=== PATIENT | male | born 1970 | race Caucasian/White ===

== ENCOUNTER 2021-01-08 07:49 | Outpatient (CLI) | payer OTHER, SELFPAY ==
[2021-01-08] VITALS (8 sets, daily range): BP systolic 124–145; BP diastolic 79–96; PULSE 77–82; RESP 16; TEMP 36.7–36.8; O2SAT 94–97
== END 2021-01-08 10:20 | disposition home or self-care (01) ==
LOC: INF 07:57
PROVIDERS: PCP Family Medicine; Visit Provider Internal Medicine Pulmonary Disease
DX: U07.1 COVID-19 (principal)
CPT/HCPCS: 96365

== ENCOUNTER → 2021-02-10 07:53 | Outpatient (CLI) | payer OTHER, SELFPAY ==
--- NOTE | 2021-02-10 | CT_ITS ---
PROCEDURE: CT HEAD/BRAIN WO CON CLINICAL INDICATION: EXERTIONAL HEADACHE COMPARISON: No exams were available for comparison TECHNIQUE: Axial images obtained. All CT scans at the facility use one or more dose reduction, viz: automated exposure control, ma/kV adjustment per patient size (including targeted exams where dose is matched to indication, i.e. head), or iterative reconstruction technique. FINDINGS: No midline shift, mass effect, intracranial hemorrhage, hydrocephalus, or extra-axial fluid collection is evident. Incidental note is made of a mildly prominent cisterna magna as a normal variant. The calvarium has an unremarkable appearance. No mastoid effusion. Mild mucosal thickening of the ethmoid sinuses, maxillary and sphenoid sinus.. IMPRESSION: 1. No acute intracranial findings. 2. Minimal mucosal thickening of the paranasal sinuses Dictated by: Rex Sims MD 02/10/2021 17:10 Rex Sims MD in [facility] 02/10/2021 17:10
--- NOTE | 2021-02-10 | CT_ITS ---
Procedure: CT BRAIN WITH CONTRAST CLINICAL HISTORY: EXERTIONAL HEADACHE COMPARISON: CT CT HEAD/BRAIN WO CON from 02/10/2021 TECHNIQUE: IV Contrast: 100ml Isovue 370 Axial images obtained with sagittal and coronal reformats. All CT scans at the facility use one or more dose reduction, viz: automated exposure control, ma/kV adjustment per patient size (including targeted exams where dose is matched to indication, i.e. head), or iterative reconstruction technique. FINDINGS: This patient a CT a the and head. The head CT a however was not adequate for vascular evaluation due to the lack of contrast therefore, the study is being interpreted as the CT of the head with contrast. No large aneurysms. No AVM. No evidence of carotid occlusive change.. No enhancing lesions. No midline shift or mass effect. No hydrocephalus. There is mild mucosal thickening of the ethmoid sinuses. Mild mucosal thickening sphenoid sinus. Mild mucosal thickening maxillary sinuses. No sinus air-fluid level. No mastoid effusion. IMPRESSION: Negative CT head with contrast. Dictated by: Rex Sims MD 03/30/2021 08:30 Rex Sims MD in [facility] 03/30/2021 08:30
--- NOTE | 2021-02-10 | CT_ITS ---
Procedure: CT ANGIO NECK CT ANGIO HEAD CLINICAL HISTORY: EXERTIONAL HEADACHE COMPARISON: CT CT ANGIO HEAD from 02/10/2021 TECHNIQUE: IV Contrast: 100ml Isovue 370 Axial images obtained with sagittal and coronal reformats. All CT scans at the facility use one or more dose reduction, viz: automated exposure control, ma/kV adjustment per patient size (including targeted exams where dose is matched to indication, i.e. head), or iterative reconstruction technique. FINDINGS: The aortic arch and great vessels are. No significant stenosis of the common carotid or internal carotid arteries. Minimal eccentric calcific plaque is noted in the proximal right ICA. No significant stenosis. No significant vertebral stenosis. Minimal eccentric plaque noted at the ostium of the right vertebral artery. A small portion of the left common carotid is not imaged due to artifact from the contrast within the left subclavian vein. No dissection or aneurysm apparent. There are few small cervical lymph nodes. IMPRESSION: No significant stenotic lesions evident. Minimal atheromatous changes. Dictated by: Rex Sims MD 02/20/2021 08:00 Rex Sims MD in [facility] 02/20/2021 08:00
--- NOTE | 2021-02-10 07:57 | CT_ITS ---
PROCEDURE: CT LUNG SCREENING CLINICAL INDICATION: lung cancer screening COMPARISON: No exams were available for comparison TECHNIQUE: The exam was performed on a GE Light Speed [address] scanner using 2.90 mGy CTDI. A low dose helical CT CHEST was performed on a multi-detector scanner. All CT scans at the facility use one or more dose reduction, viz: automated exposure control, ma/kV adjustment per patient size (including targeted exams where dose is matched to indication, i.e. head), or iterative reconstruction technique. The LDCT was performed in a facility that meets the criteria for the screening program. Data regarding this exam was submitted to ACR which is an approved registry. The order for this exam indicates that it came as a result of a lung cancer screening counseling shard decision-making visit that included all the elements required of such a visit including smoking cessation. The radiologist interpreting this exam meets the CMS criteria for the LDCT lung cancer screening program. The exam is reported using the Lung-RADS classification scale and reported to the ACR registry. NOTE: This study was performed for the specific purposes of lung cancer screening and is not an alternative to diagnostic chest CT. RADIATION DOSE: CTDI vol(CT dose Index-volume) = 2.90mG DLP (Dose Length Product) = 101.86 mGcm FINDINGS: COPD changes. No suspicious pulmonary nodules evident. There is evidence of old granulomatous disease OTHER FINDINGS: Coronary artery calcifications IMPRESSION: Lung-RADS Category 1 Negative Follow-up: Continue annual screening with LDCT in 12 months Dictated by: Rex Sims MD 02/20/2021 07:57 Rex Sims MD in [facility] 02/20/2021 07:57
== END ==
PROVIDERS: PCP Family Medicine; Visit Provider Internal Medicine Pulmonary Disease
DX: Z87.891 Personal history of nicotine dependence (principal); Z12.2 Encounter for screening for malignant neoplasm of respiratory organs; G44.84 Primary exertional headache
CPT/HCPCS: 70450; 70460; 70496; 70498; 71271; Q9967

== ENCOUNTER → 2021-02-17 06:57 | Outpatient (CLI) | payer OTHER, SELFPAY ==
--- NOTE | 2021-02-17 06:58 | CA_ITS ---
APPROVED REPORT EXAM: Comprehensive 2D, Doppler, and color-flow Echocardiogram Crane Service Technician: Nora Ng RT(R) Ht: 6 ft 2 in Wt: 250lbs BSA: 2.39 BP: 149/85 mmHg Indications: smoker, HTN, SOB, fatigue, COVID 01/05/21, LUIS, clot in heart at 28 years old. Ordered as bubble study due to frequent headaches. Echo Enhancing Agent Indication: Rule out Shunt Agent(s) / Amount(s) Used: Agitated Saline 25 cc 2D Dimensions LVEF (Marrero's) 39.40 % M: 52 - 72 LV Volume 115.20 mL M: 62 - 150 LV Volume Index 48.20 mL/m2 M: 34 - 74 M-Mode Dimensions RVDd 1.65 cm (0.9-2.6) LVDd 5.15 cm (3.5-5.7) LVDs 4.06 cm (3.5-5.7) IVSd 0.80 cm (0.6-1.1) PWd 1.05 cm (0.6-1.1) EF (Teich) 42.70% FS 21.20% EDV (Teich) 126.60 mL ESV (Teich) 72.50 mL LV Diastology E Decel Time 243.00 (160-240 msec) E/A Ratio 1.2 MED E' 9.10 (< 7 cm/sec) E'/MED E' Ratio 8.15 (>14) LAT E' 10.00 (<10 cm/sec) E/LAT E' Ratio 7.42 (>14) Mitral Valve MV E Max Francisco. 74.00 (40-130 cm/s) MV A Velocity 60.00 (40-130 cm/s) E/A Ratio 1.23 MV Decel. Time 243.00 (160-240 ms) MV PHT 71.00 ms Left Ventricle Technically difficult study because of the patient factors and poor acoustic windows. Left atrium is normal size, left ventricle is normal size, there is no concentric left ventricular hypertrophy, visually estimated ejection fraction 55% with no regional wall motion abnormality, there is no left ventricular thrombus seen. Diastolic parameters are within normal range. Right Ventricle Right atrium and right ventricle are normal size and contractility. Atria Intra-atrial septum is intact, there is no flow across the interatrial septum, agitated saline contrast study fails to identify intracardiac shunt. Aortic Valve Aortic valve is minimally thickened and fibrosed, there is no aortic stenosis or aortic insufficiency. Mitral Valve Mitral valve grossly normal, there is trace mitral regurgitation. Tricuspid Valve Tricuspid valve grossly normal, there is trace tricuspid regurgitation, tricuspid regurgitation jet velocity is inadequate for calculation of the right ventricular systolic pressure. Pulmonic Valve Pulmonic valve is poorly visualized. Great Vessels Aortic root is normal size. Inferior vena cava is normal size with normal inspiratory collapse. Pericardium No significant pericardial effusion noted. Conclusion 1. Technically difficult study because of the patient factors and poor acoustic windows. Normal left ventricular size, preserved left ventricular systolic function, visually estimated ejection fraction 55% with no regional wall motion abnormality, diastolic parameters are within normal range. 2. Trace mitral and tricuspid regurgitation. 3. Agitated saline contrast study fails to identify intracardiac shunt. Electronically signed by : Paulo Tee MD 02/21/2021 15:21:26
--- NOTE | 2021-02-17 06:58 | CA_ITS ---
APPROVED REPORT Exam: Exercise Treadmill Technologist: Tamiko Sevilla, Ht: 6 ft 0 in Wt: 252 lbs BSA: 2.35 m2 HR: 70 bpm BP: 137/80 mmHg Medical History Medical History: HTN, Hyperlipidemia Medications: Asa,,,,, Losartan,,,,, Crestor,,,,, Allergies: No known drug allergies Cardiac Risk Factors: HTN, Hyperlipidemia, Smoking Stress Test Details Test: HR Resting HR: 78 bpm Max Heart Rate (APMHR): 170.139422 bpm Max HR Achieved: 147 bpm Target HR (85% APMHR): 144.302584 bpm % of APMHR: 86.47 Recovery HR: 140 bpm BP Resting BP: 136.0/89.0 mmHg Max BP: 173.0/88.0 mmHg Recovery BP: 170.0/94.0 mmHg ECG Clinical Exercise duration: 09:31 min Highest Stage Achieved: Exercise capacity: 10.1 METs Stress ECG Conclusion PROTOCOL COMPLETED. EXERCISED 09:31. METS = 10.1. MAX BP 179/88. MAX HEART RATE 147 BPM. STOPPED DUE TO SOA. NO CP. POSITIVE FOR SOA AT PEAK EXERCISE. RESOLVED IN RECOVERY. OCCASIONAL PVC. 1 V.COUPLET. LESS THAN 1.5MM ST DEPRESSION. IMAGES TO FOLLOW Test Summary REST . . . . . . . Standing REST . . . . . . . Sitting REST 03:24 0.0 0.0 78 . 136/ 89 . . Stage 1 01:00 10.0 1.7 100 . . . . Stage 1 02:00 10.0 1.7 101 . . . . Stage 1 03:00 10.0 1.7 100 . 146/ 90 . . Stage 2 01:00 12.0 2.5 105 . . . . Stage 2 02:00 12.0 2.5 115 . . . . Stage 2 03:00 12.0 2.5 115 . 160/ 92 . . Stage 3 01:00 14.0 3.4 128 . . . . Stage 3 02:00 14.0 3.4 138 . . . . Stage 3 . . . . . . . Stage held Stage 3 03:00 14.0 3.4 146 . . . . Stage 3 . . . . . . . Stage resumed Stage 3 03:31 14.0 3.4 144 . . . Stop exercise at 09:31 RECOVERY 01:00 0.0 0.0 123 . 170/ 94 . . RECOVERY 02:00 0.0 0.0 107 . 170/ 94 . . RECOVERY 03:00 0.0 0.0 85 . 173/ 88 . . RECOVERY 04:00 0.0 0.0 94 . 173/ 88 . . RECOVERY 04:32 0.0 0.0 27 . 159/ 91 . . Electronically signed by : Paulo Tee MD 02/17/2021 10:00:31
--- NOTE | 2021-02-17 06:58 | CA_ITS ---
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: CT Laterality: Bilateral Indications: dyspnea Risk Factors Hypertension: Hyperlipidemia Smoking Doppler Spectral Velocity Analysis ECA (R) 107.90/ cm/s ECA (L) 100.30/ cm/s dICA (R) 85.00/33.10 cm/s dICA (L) 102.70/49.40 cm/s Tania (R) 71.60/28.30 cm/s Tania (L) 88.60/39.20 cm/s pICA (R) 66.30/23.10 cm/s pICA (L) 59.70/25.00 cm/s dCCA (R) 89.60/23.25 cm/s dCCA (L) 71.90/23.80 cm/s pCCA (R) 143.15/25.05 cm/s pCCA (L) 156.00/28.90 cm/s Vert (R) 34.60/9.60 cm/s Vert (L) 33.60/ cm/s ICA/CCA 0.85 ICA/CCA 1.43 Findings Duplex evaluation demonstrates stenosis of the right proximal internal carotid artery in the range of 20-49%, lower end of scale. Duplex evaluation demonstrates stenosis of the left proximal internal carotid artery in the range of 20-49%, lower end of scale. Duplex evaluation demonstrates antegrade flow of the bilateral Vertebral Arteries. Conclusion Duplex evaluation demonstrates stenosis of the right proximal internal carotid artery in the range of 20-49%, lower end of scale. Duplex evaluation demonstrates stenosis of the left proximal internal carotid artery in the range of 20-49%, lower end of scale. Duplex evaluation demonstrates antegrade flow of the bilateral Vertebral Arteries. Electronically signed by : Rex Sims MD 02/20/2021 15:23:39
--- NOTE | 2021-02-17 06:58 | NM_ITS ---
APPROVED REPORT Exam: Nuclear Stress Test Indication: short of breath..fatigue Patient Location: Outpatient Stress Tech: Ally Siunkson ID Tech:AKILAH Smalls RT(R)(N) Ht: 6 ft 0 in Wt: 250 lbs HR: 78 bpm BP: 136/89 mmHg BSA: 2.34 m2 History: short of breath..fatigue Procedure: Patient exercised on protocol 9.31 minutes and sec, resting heart rate 78 bpm, resting blood pressure 136/89 mmHg, with exercise maximum heart rate achived was 147 bpm which is 86 % of the maximum predicted heart rate and blood pressure was 173/88 mmHg. Patient denied any complaint of chest pain. Patient has good exercise capacity, achieved 10.1 METs of workload on treadmill, the blood pressure response to exercise was adequate. Electrocardiogram Resting electrocardiogram shows sinus rhythm, with exercise there is less than 1.[address] segment depression noted from the baseline EKG. The EKG portion of the exercise Myoview is negative for ischemia. Cardiac Stress and Resting SPECT Images: Cardiac Stress and Resting SPECT images were obtained using technetium 99m Myoview 32.9 mCi stress and 10.72 mCi at rest. Gated SPECT for analysis of segmental wall motion and calculation of the ejection fraction , prone images were also obtained. Familia stress and resting SPECT images show severe reduced tracer activity in the apex anterolateral and inferior apical wall consistent with area of myocardial scarring without significant mayela-infarct ischemia, compared right ejection fraction is 50% with marked apical wall hypokinesis. Right ventricle is mildly enlarged with normal contractility. There is transient ischemic dilatation of the left ventricle seen raising the concern for presence of multivessel coronary artery disease. Conclusion: 1. The EKG portion of the exercise Myoview is negative for ischemia, patient has good exercise capacity achieved 10.1 METs of workload on treadmill, the blood pressure response to exercise was adequate, there was no exercise-induced chest discomfort test was stopped due to shortness of breath. 2. Scintigraphic evidence of myocardial scarring involving the involving the showing apex, anterolateral and inferior apical wall. Right ventricle is mildly enlarged with normal contractility. There is transient ischemic dilatation of the left ventricle seen, raising the concerns of presence of multivessel coronary artery disease. Right ventricle is mildly enlarged with normal contractility. Computer derived ejection fraction is 50% with segmental wall motion abnormalities as described above. 3. Abnormal exercise Myoview study. Electronically signed by : Paulo Tee MD 02/17/2021 13:49:46
== END ==
PROVIDERS: PCP Family Medicine; Visit Provider Internal Medicine Cardiovascular Disease
DX: R09.89 Other specified symptoms and signs involving the circulatory and respiratory systems (principal); R06.00 Dyspnea, unspecified; I25.10 Atherosclerotic heart disease of native coronary artery without angina pectoris; I10 Essential (primary) hypertension; R94.31 Abnormal electrocardiogram [ECG] [EKG]; F17.200 Nicotine dependence, unspecified, uncomplicated; Z86.16 Personal history of COVID-19
CPT/HCPCS: 78452; 93017; 93306; 93880; A9502

== ENCOUNTER 2021-02-24 09:03 | Day surgery (SDC) | payer OTHER, SELFPAY ==
[2021-02-24] VITALS (11 sets, daily range): BP systolic 86–179; BP diastolic 52–95; PULSE 57–76; RESP 16–19; TEMP 36.8; O2SAT 94–99; BMI 34.2
--- NOTE | 2021-02-24 | IR_ITS ---
APPROVED REPORT Patient Location: Outpatient PROCEDURES Left heart catheterization Left ventriculogram Selective coronary angiogram INDICATION Known coronary artery disease, High risk abnormal Myoview Informed consent was obtained prior to the procedure. COMPLICATIONS none Estimated Blood Loss: less than 10 ml TECHNIQUE One percent lidocaine used to anesthetize the right anterior aspect of the wrist. The right radial artery was accessed via the Seldinger technique. A 6 K[place] sheath was placed in the right radial artery. 2.5 mg of verapamil, 800 mcg of nitroglycerin, 1mg Lidocaine and 5000 U Heparin were given through the arterial sheath. The Poppa 1 catheter was also used to perform left heart catheterization, left ventriculogram and selective coronary angiogram. At the end of the procedure the sheath was removed good hemostasis was achieved using Traclet band, patient was transferred to the postop holding area in stable condition. ANGIOGRAPHIC RESULTS The left main artery Normal The left anterior descending artery Has proximal concentric 20% stenosis with mild 10% mid vessel distal luminal irregularities The circumflex artery Nondominant yet still large with proximal 10% luminal irregularities and 10 to 20% stenosis in the large terminal obtuse marginal artery The right coronary artery Is a large dominant vessel with an ostial 10 to 20% stenosis proximal 20% stenosis mid vessel 30% stenoses with distal 10% stenoses. The entire vessel has mild vascular ectasia initially with BRYAN II flow The GOETZ ventriculogram reveals Normal 65% The left ventricular end-diastolic pressure 10 mmHg IMPRESSION Mild to moderate coronary disease as described above Mild vascular ectasia in the dominant right coronary accompanied by mild to moderate coronary artery disease also accompanied by BRYAN II flow consistent with endothelial dysfunction Normal ejection fraction Normal left ventricular end-diastolic pressure PLAN 1. Aggressive risk factor modification 2. Treatment of endothelial disease 3. Avoidance of tobacco products Electronically signed by : John Irvin MD 02/24/2021 11:37:01
[2021-02-24 09:41] LABS: Coronavirus 19, PCR Not Detected (NotDetected); Influenza A, PCR Not Detected (NotDetected); Influenza B, PCR Not Detected (NotDetected)
[2021-02-24 09:46] LABS: Basophils # 0.1 K/mm3 (0-0.2); Basophils % 1.2 % (0.1-2.0); Eosinophils # 0.1 K/mm3 (0.0-0.4); Eosinophils % 1.8 % (0.1-12.0); Hematocrit 48.6 % (42.0-52.0); Hemoglobin 16.3 g/dL (14.1-18.0); Lymphocytes # 2.3 K/mm3 (0.7-4.5); Lymphocytes % 35.5 % (10-50); Mean Corpuscular HGB Conc 33.5 g/dL (31.8-35.4); Mean Corpuscular Hemoglobin 32.3 pg (27.0-31.2); Mean Corpuscular Volume 96.2 fl (80-94); Mean Platelet Volume 8.3 fl (7.4-10.4); Monocytes # 0.5 K/mm3 (0.1-1.0); Monocytes % 8.4 % (1.7-9.3); Neutrophils # 3.4 K/mm3 (1.8-7.8); Neutrophils % 53.2 % (37.0-80.0); Platelet Count 272 K/mm3 (142-424); Red Blood Count 5.05 M/mm3 (4.60-6.20); Red Cell Distribution Width 13.6 % (11.5-17.5); White Blood Count 6.5 K/mm3 (4.8-10.8)
[2021-02-24 10:01] LABS: Anion Gap 12.3 mEq/L (5-15); Blood Urea Nitrogen 12 mg/dl (9-20); Calcium 9.5 mg/dl (8.4-10.2); Carbon Dioxide 29 mmol/L (22.0-30.0); Chloride 102 mmol/L (98-107); Creatinine Clearance Estimated 143 mL/min (50-200); Estimated Glomerular Filt Rate 79 ml/min (>60); GFR (African American) 96 ML/MIN (>60); Glucose 113 mg/dl (74-100); Potassium 4.3 mmoL/L (3.5-5.1); Sodium 139 mmol/L (136-145)
== END 2021-02-24 14:03 | disposition home or self-care (01) ==
LOC: CATHLAB 09:04
PROVIDERS: PCP Family Medicine; Visit Provider Internal Medicine
DX: I25.118 Atherosclerotic heart disease of native coronary artery with other forms of angina pectoris (principal); R94.39 Abnormal result of other cardiovascular function study; I10 Essential (primary) hypertension; Z79.899 Other long term (current) drug therapy; Z88.8 Allergy status to other drugs, medicaments and biological substances; Z20.822 Contact with and (suspected) exposure to COVID-19
CPT/HCPCS: 80048; 85025; 93458; 99152; C1725; C1760; C1769; C9803; J1644; Q9967; U0003; U0005

== ENCOUNTER → 2023-01-17 08:15 | Outpatient (CLI) | payer OTHER, SELFPAY | PROVIDERS: PCP Family Medicine; Visit Provider Internal Medicine Pulmonary Disease | DX: R06.09 Other forms of dyspnea (principal); B96.89 Other specified bacterial agents as the cause of diseases classified elsewhere | CPT/HCPCS: 87070; 87205 ==

== ENCOUNTER → 2023-01-18 11:04 | Outpatient (CLI) | payer OTHER, SELFPAY ==
--- NOTE | 2023-01-18 11:05 | CT_ITS ---
FINAL REPORT CLINICAL HISTORY: lung cancer screening smoker, 1 ppd x 20 years COMPARISON: 02/20/2021 FINDINGS: CT CHEST LOW DOSE SCREENING HISTORY: Screening exam for lung cancer. Current smoker, 20 pack year smoking history DOSE: CTDIvol: 2.9 mGy, DLP: 113.59 mGy*cm COMPARISON: 02/20/2021. TECHNIQUE: Axial CT without IV contrast administration using low dose protocol FINDINGS: No acute lung disease is present . No pulmonary lesions are seen suspicious for neoplasm. Mild vascular calcifications are identified. Several calcified granulomas are noted in the lung otoole bilaterally. No pleural or pericardial effusion is seen . No adenopathy or mass lesion is present . Fatty infiltration of the liver is present. IMPRESSION: No focal pulmonary mass or nodule is seen. LUNG RADS CATEGORY 1 RECOMMENDATION: 12 month LDCT follow up Reviewed, Interpreted and Dictated by Mike Zepeda III, MD Transcribed by Crystal Carmona Authenticated and [facility]
== END ==
PROVIDERS: PCP Internal Medicine Pulmonary Disease; Visit Provider Internal Medicine Pulmonary Disease
DX: F17.210 Nicotine dependence, cigarettes, uncomplicated (principal)
CPT/HCPCS: 71271

== ENCOUNTER 2024-01-14 13:19 | Outpatient (CLI) | payer OTHER, SELFPAY ==
--- NOTE | 2024-01-14 13:24 | XR_ITS ---
FINAL REPORT CLINICAL HISTORY: knee pain twisted knee yesterday COMPARISON: None FINDINGS: Three views of the left knee reveal no evidence of fracture or dislocation. The bony alignment is normal. Mild degenerative changes are present with a small joint effusion. No localized soft tissue abnormality is seen. IMPRESSION: Mild degenerative change with a small joint effusion. Reviewed, Interpreted and Dictated by Mike Zepeda III, MD Transcribed by Crystal Carmona Authenticated and [facility]
== END 2024-01-14 23:59 | disposition home or self-care (01) ==
LOC: RAD 13:20
PROVIDERS: PCP Family Medicine; Visit Provider Physician Assistant
DX: M25.562 Pain in left knee (principal)
CPT/HCPCS: 73562

== ENCOUNTER 2024-01-15 10:00 | Outpatient (CLI) | payer OTHER, SELFPAY ==
--- NOTE | 2024-01-15 10:00 | MR_ITS ---
FINAL REPORT CLINICAL HISTORY: Left Knee pain twisted knee 2 days ago pain inferior to patella COMPARISON: None FINDINGS: Multiplanar MR imaging of the left knee was performed without contrast. There is a tear of the posterior horn of the medial meniscus. The lateral meniscus is intact. The anterior and posterior cruciate ligaments are intact. There is a mild partial tear of the proximal medial collateral ligament, with an intact lateral ligamentous complex. Foci of patellar tendinitis are noted. There is no evidence of fracture. There is mild and moderate chondromalacia, most severe in the lateral femoral condyle. A moderate joint effusion is seen. The musculature is intact. There is a moderate ruptured popliteal cyst. IMPRESSION: Tear posterior horn medial meniscus, with a mild partial tear of the proximal MCL. Foci of patellar tendinitis. Mild and moderate chondromalacia, most severe in the lateral femoral compartment, with a moderate joint effusion and a moderate sized ruptured popliteal cyst. Reviewed, Interpreted and Dictated by Mike Zepeda III, MD Transcribed by Crystal Carmona Authenticated and [facility]
== END 2024-01-15 23:59 | disposition home or self-care (01) ==
LOC: RAD 10:00
PROVIDERS: PCP Family Medicine; Visit Provider Physician Assistant
DX: M25.562 Pain in left knee (principal)
CPT/HCPCS: 73721

== ENCOUNTER 2024-01-23 14:36 | Outpatient (POV) | payer OTHER, SELFPAY | END 2024-01-23 23:59 | disposition home or self-care (01) | LOC: SC 14:36 | PROVIDERS: Visit Provider Specialist/Technologist | DX: Z00.00 Encounter for general adult medical examination without abnormal findings (principal) ==